=== PATIENT | male | born 1945 | race Two or more races ===

== ENCOUNTER 2024-05-25 10:08 | Inpatient (IN) | payer OTHER ==
[~2024-05-25] VITALS: Ht 121.9 cm; Wt 72.6 kg
[2024-05-25] MEDS ORDERED: VERELAN PM200 MG (11:27)
[2024-05-25] MEDS ORDERED: ALTACE5 MG PO (11:28)
[2024-05-25] MEDS ORDERED: ELIQUIS5 MG PO (11:28)
[2024-05-25] MEDS ORDERED: FOLIC ACID1 MG (11:28)
[2024-05-25] MEDS ORDERED: TAMS0.4C PO (11:29)
[2024-05-25] MEDS ORDERED: PRAVASTATIN SOD20 MG PO (11:30)
[2024-06-06] MEDS ORDERED: CEFTRIAXONE SODIUM 2,000 MG VIAL ONE (11:18)
[2024-06-06] MEDS ORDERED: METRONIDAZOLE/SODIUM CHLORIDE 500 MG/100 ML PIGGYBACK IV ONE (11:19)
[2024-06-06] MEDS ORDERED: LIDOCAINE HCL 1%/EPINEPHRINE 20ML VIAL IJ ONE (12:33)
[2024-06-06] MEDS ORDERED: BUPIVACAINE HCL/MPF 0.5% 30ML VIAL ONE (12:33)
[2024-06-07 06:56] LABS: HEMOGLOBIN 13.4 g/dL (13-16.00); MEAN CELL VOLUME 87.8 fL (80.0-100.00); MEAN CORPUSCULAR HEMOGLOBIN 29.5 pg (27.00-32.0); MEAN CORPUSCULAR HGB CONC 33.6 g/dl (32.0-36.0); PLATELET COUNT 193 K/uL (150-450); RED BLOOD COUNT 4.55 M/uL (4.00-6.00); RED CELL DISTRIBUTION WIDTH 14.1 % (11.5-14.5)
[2024-06-07 07:34] LABS: ALBUMIN 2.8 gm/dL (3.4-5.0); CALCIUM 8.1 mg/dL (8.5-10.1); CREATININE SERUM 0.82 mg/dL (0.70-1.30); GFR 91.1; MAGNESIUM 1.5 mg/dL (1.8-2.4); PHOSPHOROUS 3.2 mg/dL (2.5-4.9); POTASSIUM 4.62 mEq/L (3.5-5.1)
[2024-06-07] MEDS ORDERED: VERAPAMIL HCL 120 MG TABLET PO ONE (10:25)
[2024-06-07] MEDS ORDERED: ENALAPRILAT DIHYDRATE 1.25 MG/ML VIAL IV PRN (11:15)
[2024-06-07] MEDS ORDERED: MAGNESIUM SULFATE IN WATER 50 ML IV NR (12:00)
[2024-06-07] MEDS ORDERED: ONDANSETRON HCL 2 MG/ML VIAL IV PRN (14:15)
[2024-06-07] MEDS ORDERED: GABAPENTIN 300 MG CAPSULE PO PRN (14:15)
[2024-06-07] MEDS ORDERED: MORPHINE SULFATE 4 MG/ML CARTRIDGE IV PRN (14:15)
[2024-06-07] MEDS ORDERED: RINGERS SOLUTION,LACTATED 1,000 ML IV SCH (14:15)
[2024-06-07 16:20] VITALS: BP 103/60; O2SAT 97
[2024-06-07] MEDS ORDERED: ENOXAPARIN SODIUM 40 MG/0.4 ML SYRINGE SUBCUTANEO SCH (17:00)
[2024-06-07] MEDS ORDERED: PRAVASTATIN 20 MG PO SCH (17:00)
[2024-06-07] MEDS ORDERED: FAMOTIDINE/PF 20 MG/2 ML VIAL IV SCH (17:00)
[2024-06-07] MEDS ORDERED: ACETAMINOPHEN 500 MG GEL..CAP PO SCH (18:00)
[2024-06-07] MEDS ORDERED: FINASTERIDE 5 MG TABLET PO SCH (21:00)
[2024-06-07] MEDS ORDERED: TAMSULOSIN HCL 0.4 MG CAP PO SCH (21:00)
[2024-06-08 01:27] VITALS: BP 118/63; O2SAT 96
[2024-06-08 06:54] LABS: HEMATOCRIT 37.6 % (39.0-48.0); HEMOGLOBIN 12.6 g/dL (13-16.00); MEAN CELL VOLUME 88.7 fL (80.0-100.00); MEAN CORPUSCULAR HEMOGLOBIN 29.7 pg (27.00-32.0); MEAN CORPUSCULAR HGB CONC 33.4 g/dl (32.0-36.0); PLATELET COUNT 168 K/uL (150-450); RED BLOOD COUNT 4.24 M/uL (4.00-6.00); RED CELL DISTRIBUTION WIDTH 14.1 % (11.5-14.5)
[2024-06-08 07:31] LABS: CALCIUM 8.1 mg/dL (8.5-10.1); CREATININE SERUM 0.78 mg/dL (0.70-1.30); GFR 96.51; MAGNESIUM 2.2 mg/dL (1.8-2.4); POTASSIUM 5.02 mEq/L (3.5-5.1)
[2024-06-08 08:22] LABS: PHOSPHOROUS 1.7 mg/dL (2.5-4.9)
[2024-06-08 08:32] VITALS: BP 126/66; O2SAT 98
[2024-06-08] MEDS ORDERED: VERAPAMIL HCL 120 MG TABLET.SA PO SCH (09:00)
[2024-06-08] MEDS ORDERED: RAMIPRIL 5 MG CAPSULE PO SCH (09:00)
[2024-06-08] MEDS ORDERED: POTASSIUM PHOS,M-BASIC-D-BASIC 3 MM/ML VIAL IV NR (09:00)
[2024-06-08 16:17] VITALS: BP 157/72; O2SAT 97
[2024-06-09 00:54] VITALS: BP 129/86; O2SAT 95
[2024-06-09 09:24] VITALS: BP 132/74; O2SAT 98
[2024-06-09] MEDS ORDERED: NEURONTIN300 MG PO (12:12)
[2024-06-09] MEDS ORDERED: TYLENOL ARTHRI650 MG PO (12:12)
== END 2024-06-09 14:42 | disposition home or self-care (01) | DRG 331 ==
LOC: O/R 06-06 05:33 → SURG 06-06 05:33 → CIR.AMB 06-06 10:05 → EDSTATUS 06-06 10:06 → CIR.AMB 06-06 10:06 → SURG 06-06 10:07
PROVIDERS: Internal Medicine Geriatric Medicine; ADMIT Surgery; ATTEND Surgery
PROC: 0DTF4ZZ Resection of Right Large Intestine, Percutaneous Endoscopic Approach (ICD-10-PCS; principal; 2024-06-07)
PROC: 07BC4ZZ Excision of Pelvis Lymphatic, Percutaneous Endoscopic Approach (ICD-10-PCS; 2024-06-07)
PROC: 4A12X4Z Monitoring of Cardiac Electrical Activity, External Approach (ICD-10-PCS; 2024-06-07)
DX: D12.2 Benign neoplasm of ascending colon (principal); D37.4 Neoplasm of uncertain behavior of colon; R59.0 Localized enlarged lymph nodes